=== PATIENT | female | born 1995 | race Caucasian/White ===

== ENCOUNTER 2024-07-08 12:53 | Emergency (ER) | payer BC, SELFPAY ==
[2024-07-08 12:56] VITALS: BP 124/72
--- NOTE | 2024-07-08 13:48 | ED.GENMED ---
History of Present Illness
General
Chief Complaint: Skin Problem
Time Seen by Provider: 07/08/24 13:09
History of Present Illness
History of Present Illness:
29 yo female presents to the Emergency Department for evaluation of pain to the plantar R foot. Notes that she stepped on glass several months ago, felt as though she had extracted all pieces of glass. Had been pain free for quite some time but
within the past 48 hours, developed increased pain and red streaking at the site. No fevers.
Review of Systems
Review of Systems
Allergies reviewed?: Yes
All Other Systems: ROS reviewed and negative except as documented in HPI and ROS
Phy Exam
Physical Exam
Physical Exam:
GEN: Well appearing, NAD, WDWN
HEENT: Oral mucosa moist, no scleral icterus
Cardiac: Regular rate
Lung: No respiratory distress, no tachypnea
MSK: No gross deformity or injuries
Skin: Good color, no pallor or jaundice. Purulent lesion with mild surrounding erythema to the plantar R foot at the 1st MTP joint. Faint lymphangitic streaking extending to the midfoot.
Neuro: AO x3, moves all extremities freely
Psych: Calm, cooperative
Course
Orders/Labs/Results
Orders:
Orders
07/08/24 12:56
CR Foot - Right Min 3 Views Urgent
Comment:
Reason For Exam: stepped on glass, pain, swelling
Vital Signs
Initial and Last Documented VS:
Initial Vital Signs
Temp Pulse Resp BP Pulse Ox
98.2 F 87 18 124/72 100
07/08/24 12:56 07/08/24 12:56 07/08/24 12:56 07/08/24 12:56 07/08/24 12:56
Last Documented Vital Signs
Temp Pulse Resp BP Pulse Ox
98.2 F 87 18 124/72 100
07/08/24 12:56 07/08/24 12:56 07/08/24 12:56 07/08/24 12:56 07/08/24 12:56
Procedures
Incision/Drainage/Joint Aspiration
Right Foot:
Anethesia: 1% Lidocaine with Epi
Preparation: cleaned with alcohol wipe
Type of procedure: incise and drain
Nature of site: abscess
Description of abscess: less than 3cm
Loculations broken up: No
How much fluid was obtained?: scant amount
Fluid description: purulent
Treatment: left open for drainage
Additional information:
No FB visualized on bedside US or by wound probing
MDM/Problems Addressed
MDM/Problems Addressed:
Unable to visualize FB on exam or by US. Wound probed extensively. Will cover w/ abx.
*Critical Care Note
Total Time (30-74mins, 75-104mins- exclusive of procedures): Not Applicable
ED Attending Note
-
Portions of this chart may have been created with voice recognition software.� Occasional wrong word or��sound alike� substitutions may have occurred due to the inherent limitations of voice recognition software.
Discharge Plan
Departure
Patient Disposition: Home (Routine Discharge)
Date of Disposition: 07/08/24
Time of Disposition: 13:48
Patient with high blood pressure during this ER visit?: No
Discharge Problem:
Abscess of right foot
Instructions: Wound Care (DC)
Prescriptions:
New
cephalexin 500 mg capsule
500 mg PO Q8H 5 Days Qty: 15 0RF
Interventions
Interventions:
*Risk Screen - Suicide Last Done: 07/08/24 12:56
*General Assessment Last Done: 07/08/24 12:56
*Neglect/Abuse Screening Last Done: 07/08/24 12:56
Discharge Date and Time
Print Language: CROATIAN
== END 2024-07-08 14:38 | disposition home or self-care (01) ==
LOC: EMR 12:53
PROVIDERS: EMERGENCY PHYSICIAN Emergency Medicine; FAMILY PHYSICIAN Family Medicine
DX: L02.611 Cutaneous abscess of right foot (principal); S99.821A Other specified injuries of right foot, initial encounter; W25.XXXA Contact with sharp glass, initial encounter
CPT/HCPCS: 10060; 99283